=== PATIENT | male | born 2000 | race Two or more races ===

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

== ENCOUNTER 2018-04-23 20:49 | Emergency (ER) | payer MEDICAID ==
--- NOTE | 2018-04-23 21:05 | EDPHY ---
H & P Stated Complaint: swollen tonsils and sore throat - Personal History Current Tetanus/Diphtheria Vaccine: Yes Current Tetanus Diphtheria and Acellular Pertussis (TDAP): Yes - Medical/Surgical History Hx Asthma: No Hx Chronic Respiratory Disease: No Hx Diabetes: No Hx Cardiac Disease: No Hx Renal Disease: No Hx Cirrhosis: No Hx Alcoholism: No Hx HIV/AIDS: No Hx Splenectomy or Spleen Trauma: No Other PMH: denies - Social History Smoking Status: Never smoked Time Seen by Provider: 04/23/18 20:56 HPI/ROS: CHIEF COMPLAINT: Sore throat x3 months HISTORY OF PRESENT ILLNESS: 17-year-old immunocompetent male complaining of 3 months of sore throat. He was seen at [facility] recently and has had laboratory studies including negative Monospot, negative strep, negative HIV, negative chlamydia and gonorrhea, elevated EBV viral capsid IgG, started on acyclovir and given dose of Decadron this evening before being referred to the ER for CT imaging of the neck to evaluate peritonsillar abscess. PRIMARY CARE PROVIDER: REVIEW OF SYSTEMS: 10 systems reviewed and negative with the exception of the elements mentioned in the history of present illness PAST MEDICAL & SURGICAL HISTORY: No pertinent medical or surgical history SOCIAL HISTORY nonsmoker PHYSICAL EXAM (Prior to examination, patient consented to physical exam, hands were washed and my usual and customary physical exam procedures followed) 1) GENERAL: Well-developed, well-nourished, alert and oriented. Appears nontoxic 2) HEAD: Normocephalic, atraumatic 3) HEENT: Pupils equal, round, reactive to light bilaterally. Sclera anicteric. Oropharynx: No trismus no drooling. Bilateral tonsils are symmetrically enlarged with white exudate. No trismus no drooling. No hot potato voice. Dry mucous membranes. Ears bilaterally with normal tympanic membranes. 4) NECK: Full range of motion, no meningeal signs. Positive the tender submandibular adenopathy bilaterally. No nuchal rigidity. Negative meningeal signs. 5) LUNGS: Clear auscultation bilaterally, no wheezes, no rhonchi, no retractions. 6) HEART: Regular rate and rhythm, no murmur, no heave, no gallop. 7) ABDOMEN: No guarding, no rebound, no focal tenderness, negative McBurney's, negative Deal's, negative Rovsing's, negative peritoneal sign, no left upper quadrant pain with splenomegaly. 8) MUSCULOSKELETAL: Moving all extremities, no focal areas of tenderness, no obvious trauma. No peripheral edema or discoloration. 9) BACK: No CVA tenderness, no midline vertebral tenderness, no fluctuance, no step-off, no obvious trauma, no visual or palpable abnormality. 10) SKIN: No rash, no petechiae. 11) Psychiatric: Patient is oriented X 3, there is no agitation. DIFFERENTIAL DIAGNOSIS: In no particular order, my differential diagnosis includes, but is not limited to, strep pharyngitis, viral pharyngitis, peritonsillar abscess, retropharyngeal abscess or plegmon, mononucleosis, meningitis, Lemierre syndrome. (Judy Ramsay) Constitutional: Initial Vital Signs Temperature (C) 37.1 C 04/23/18 20:51 Heart Rate 109 H 04/23/18 20:51 Respiratory Rate 16 04/23/18 20:51 Blood Pressure 104/65 04/23/18 20:51 O2 Sat (%) 96 04/23/18 20:51 O2 Delivery Mode Room Air Allergies/Adverse Reactions: No Known Allergies Allergy (Verified 04/23/18 20:54) Home Medications: Medication Instructions Recorded Acyclovir 04/23/18 Clindamycin HCl [Clindamycin] 300 mg PO TID 7 Days cap 04/23/18 DEXAMETHASONE 04/23/18 Medical Decision Making - Diagnostics Imaging Results: Images reviewed myself (Judy Ramsay) ED Course/Re-evaluation: 10:30 p.m. re-evaluation. Discussed with patient's imaging results showing inflammatory change in the right peritonsillar region with 2 cm area of low attenuation suggestive of evolving peritonsillar abscess. His airway is patent at this time, no trismus no drooling, swallowing secretions with the ease. He has already received IV Decadron, he has received IV clindamycin in the ER. 10:36 p.m.: Phone consultation with Dr. Cayla Corley ENT who will see the patient in the morning. 10:40 p.m.: Discussed the plan with the patient. He will need to see ENT in the morning provide him the back lined that Dr. Cayla Corley provided. He has been given a school note. Stay compliant with medications. He feels comfortable being discharged. Usual and customary ENT precautions instructions provided. Care of patient under supervision of secondary supervising physician Dr Rivera. (Judy Ramsay) This patient was evaluated and treated by the physician delivery driver assistant. I approve of the plan of care. I am the secondary supervising physician. (Ciarra Rivera ) - Data Points Laboratory Results: Laboratory Results 04/23/18 21:07 04/23/18 21:07 Medications Given: Discontinued Medications Clindamycin (Cleocin 150 Mg Prepack#6) 1 btl TAKEHOME EDNOW ONE PRN Reason: Protocol Stop: 04/23/18 22:41 Last Admin: 04/23/18 23:06 Dose: 1 btl Dexamethasone (Decadron Injection) 10 mg IVP EDNOW ONE Stop: 04/23/18 22:46 Last Admin: 04/23/18 23:03 Dose: 10 mg Sodium Chloride (Ns) 1,000 mls @ 0 mls/hr IV ONCE ONE PRN Reason: Wide Open Stop: 04/23/18 21:13 Last Admin: 04/23/18 21:18 Dose: 1,000 mls Clindamycin Phosphate/Dextrose (Cleocin 600 Mg (Premix)) 50 mls @ 100 mls/hr IV EDNOW ONE PRN Reason: Protocol Stop: 04/23/18 22:34 Last Admin: 04/23/18 22:12 Dose: 50 mls Ketorolac Tromethamine (Toradol) 15 mg IVP EDNOW ONE Stop: 04/23/18 22:17 Last Admin: 04/23/18 22:17 Dose: 15 mg Point of Care Test Results: Chemistry 04/23/18 21:14 POC Sodium 142 mEq/L mEq/L (135-145) POC Potassium 3.7 mEq/L mEq/L (3.3-5.0) POC Chloride 103 mEq/L mEq/L (97-110) POC Total CO2 22 mEq/L mEq/L (22-31) POC BUN 16 mg/dL mg/dL (7-23) POC Creatinine 0.9 mg/dL mg/dL (0.7-1.3) POC Glucose 113 mg/dL H mg/dL (70-100) ISTAT H&H 04/23/18 21:14 POC Hgb 16.7 gm/dL gm/dL (13.7-17.5) POC Hct 49 % % (40-51) Departure - Departure Disposition: Home, Routine, Self-Care Clinical Impression: Abscess, peritonsillar Condition: Good Instructions: Clindamycin (By mouth), Peritonsillar Abscess (ED) Additional Instructions: Return to the ER immediately if you cannot swallow, have drooling, fevers, neck stiffness, cannot open your jaw, or any other symptoms that concern you. Referrals: Cayla Corley MD [Medical Doctor] - 1 day without fail (At 9:00 a.m. tomorrow morning call Dr. Cayla Corley 6 nurse back line, phone [phone] to be seen later tomorrow morning or afternoon by Dr. Cayla Corley.) Stand Alone Forms: School Excuse Prescriptions: Clindamycin HCl [Clindamycin] 300 mg PO TID 7 Days cap
[2018-04-23] MEDS ORDERED: NS 1,000 ML IV ONE (21:12)
[2018-04-23 21:18] LABS: PLATELET COUNT 360 10^3/uL (150-400)
[2018-04-23] MEDS ORDERED: IOHEXOL 350mgI/ML (OMNIPAQUE) 150 ML BTL IV ONE (21:28)
[2018-04-23] MEDS ORDERED: CLINDAMYCIN 600 MG/DEXTROSE 50 ML IV ONE (22:05)
[2018-04-23] MEDS ORDERED: KETOROLAC 15 MG/1 ML SDV ONE (22:15)
[2018-04-23] MEDS ORDERED: KETOROLAC 15 MG/1 ML SDV IVP ONE (22:16)
[2018-04-23] MEDS ORDERED: CLINDAMYCIN 150MG PREPACK#6 BTL TAKEHOME ONE (22:40)
[2018-04-23] MEDS ORDERED: DEXAMETHASONE 10 MG/ML VIAL IVP ONE (22:45)
[2018-04-23 23:04] VITALS: BP 109/73
== END 2018-04-23 23:15 | disposition home or self-care (01) ==
DX: J36 Peritonsillar abscess (principal)
CPT/HCPCS: 82435-PO; 82565-PO; 82947-PO; 84132-PO; 84295-PO; 84520-PO; 85014-ER; 96374; J1100; J1885; Q9967